=== PATIENT | male | born 1995 ===

== ENCOUNTER 2023-03-10 12:53 | Emergency (ER) | payer SELFPAY ==
[2023-03-10 13:38] LABS: ALANINE AMINOTRANSFERASE,ALT 28 U/L (12-78); ALBUMIN 4.1 g/dL (3.4-5.0); ALKALINE PHOSPHATASE 71 U/L (46-116); ASPARTATE AMNIOTRANSFERASE,AST 19 U/L (15-37); BILIRUBIN TOTAL 0.5 mg/dL (0.0-1.0); BLOOD UREA NITROGEN,BUN 16 mg/dL (7-18); CALCIUM 9.2 mg/dL (8.4-10.1); CARBON DIOXIDE,CO2 30 mmol/L (21-32); CHLORIDE,CL 102 mEq/L (98-106); CREATININE 0.8 mg/dL (0.7-1.3); GLUCOSE RANDOM 105 mg/dL (75-99); LIPASE 48 U/L (16-77); PROTEIN TOTAL,TP 7.7 g/dL (6.4-8.2); SODIUM,NA 138 mEq/L (136-145)
[2023-03-10 13:39] LABS: ESTIMATED GFR 123 mL/min (>=60)
[2023-03-10] MEDS ORDERED: Aluminum Hydroxide/Magnesium Hydroxide/Simethicone Susp 30 ML Cup PO ONE (13:49)
[2023-03-10 14:07] LABS: BASOPHILS ABSOLUTE AUTO 0.05 10^3/uL (0.00-0.50); BASOPHILS PERCENT AUTO 0.7 % (0-1); EOSINOPHILS ABSOLUTE AUTO 0.33 10^3/uL (0.00-1.50); EOSINOPHILS PERCENT AUTO 4.7 % (0-6); HEMATOCRIT 42.5 % (42.0-52.0); HEMOGLOBIN 15.3 g/dL (14.0-18.0); IMMATURE GRAN ABSOLUTE AUTO 0.02 10^3/uL (0.00-0.49); IMMATURE GRAN PERCENT AUTO 0.3 % (0.0-4.9); LYMPHOCYTES ABSOLUTE AUTO 2.06 10^3/uL (0.60-5.00); LYMPHOCYTES PERCENT AUTO 29.3 % (24-44); MEAN CORPUSCULAR HEMOGLOBIN 29.8 pg (27.0-32.0); MEAN CORPUSCULAR VOLUME 82.7 fL (83.0-97.0); MONOCYTES ABSOLUTE AUTO 0.48 10^3/uL (0.00-1.50); MONOCYTES PERCENT AUTO 6.8 % (0-10); NEUTROPHILS PERCENT AUTO 58.2 % (41-71); PLATELET COUNT,PLT 292 10^3/uL (150-400); RED BLOOD CELL COUNT 5.14 x10^6/uL (4.50-6.00)
== END 2023-03-10 14:10 | disposition home or self-care (01) ==
LOC: CC.ED 12:53
DX: K21.9 Gastro-esophageal reflux disease without esophagitis (principal); Z20.822 Contact with and (suspected) exposure to COVID-19
CPT/HCPCS: 36415; 71046; 80053; 83690; 83735; 84484; 85025; 93010; 99284; 99285; A9270-GY; U0002